=== PATIENT | female | born 1975 ===

== ENCOUNTER 2020-08-10 12:19 | Emergency (ER) | payer OTHER ==
[~2020-08-10] VITALS: Ht 175.3 cm; Wt 81.6 kg
[2020-08-10] MEDS ORDERED: COZAAR50 MG PO (12:39)
[2020-08-10] MEDS ORDERED: CARVEDILOL6.25 MG (12:39)
== END 2020-08-10 16:01 | disposition home or self-care (01) ==
LOC: ER 12:19
DX: N92.5 Other specified irregular menstruation (principal)